=== PATIENT | male | born 2000 | race Caucasian/White ===

== ENCOUNTER 2024-09-27 08:32 | Emergency (ER) | payer SELFPAY ==
[2024-09-27 08:49] VITALS: BP 130/72; PULSE 76; RESP 16; TEMP 36.4; O2SAT 99
--- NOTE | 2024-09-27 09:10 | ED.GENADULT ---
HPI - General Adult General Chief complaint: Upper Respiratory Infection Stated complaint: Sick Feeling Time Seen by Provider: 09/27/24 08:59 Source: patient and RN notes reviewed Mode of arrival: ambulatory Limitations: no limitations History of Present Illness HPI narrative: Patient presents today with a 1 month history of intermittent nausea and vomiting, approximately every other day. Vomiting typically occurs in the morning and nausea resolves through the day. Patient denies abdominal pain or diarrhea. States he does occasionally have some burning esophagus or upper chest area. Related Data Allergies Allergy/AdvReac Type Severity Reaction Status Date / Time No Known Allergies Allergy Verified 09/27/24 09:13 Review of Systems Review of Systems: CONSTITUTIONAL: Denies body aches, fever, chills, or sweats. EYES: Denies visual changes, redness, or discharge. ENT: Denies rhinorrhea, congestion, sore throat, or otalgia. CARDIOVASCULAR: Denies chest pain, palpitations, or edema. RESPIRATORY: Denies cough or dyspnea. GASTROINTESTINAL: Denies abdominal pain, or diarrhea.+ nausea, vomiting GENITOURINARY: Denies dysuria or hematuria. SKIN: Denies rash, itching, or wounds. MUSCULOSKELETAL: Denies back pain, joint pain, or myalgia. NEUROLOGIC: Denies headache, numbness, tingling, or weakness. PSYCH: Denies depression or anxiety. REPLACED BY [facility] Family History Family History Other Carcinoma of colon Diabetes mellitus Family history of congestive heart failure Family history of malignant neoplasm Family history of malignant neoplasm of breast Social History Social History Smoking status: Never smoker Alcohol intake: never Comments At time of signature, I have reviewed and agree with nursing past medical, surgical, social and family history unless otherwise noted. Please see nursing chart for further information. There is no relevant family history pertinent to the presenting complaint Exam Narrative: GENERAL: Well-appearing, well-nourished, and in no acute distress. HEAD: Normocephalic, atraumatic. EYES: EOMI. No redness or drainage. Conjunctivae normal. ENT: Mucous membranes pink and moist. Nares clear. No rhinorrhea. Throat normal. Uvula midline. NECK: Normal AROM. Supple. No lymphadenopathy. CHEST: No respiratory distress. Clear to auscultation. HEART: Regular rate and rhythm. No murmur appreciated. ABDOMEN: Soft, nontender, nondistended, normal active bowel sounds. EXTREMITIES: Normal range of motion. No edema. SKIN: Warm, dry, no rash. Capillary refill normal. Normal skin turgor. NEURO: No focal deficits. Alert and oriented x3. Gait steady. PSYCH: Normal affect. No signs of depression or anxiety. Course Course Level of Care: Express Care Visit Vital Signs Vital signs: Vital Signs Temperature 97.5 F L 09/27/24 08:49 Pulse Rate 76 09/27/24 08:49 Respiratory Rate 16 09/27/24 08:49 Blood Pressure 130/72 09/27/24 08:49 Pulse Oximetry 99 09/27/24 08:49 Oxygen Delivery Room Air 09/27/24 08:49 Temperature 97.5 F L 09/27/24 08:49 Pulse Rate 76 09/27/24 08:49 Respiratory Rate 16 09/27/24 08:49 Blood Pressure 130/72 09/27/24 08:49 Pulse Oximetry 99 09/27/24 08:49 Oxygen Delivery Room Air 09/27/24 08:49 Reviewed Medical Decision Making MDM Narrative Medical decision making narrative: Patient's symptoms likely due to GERD. Will prescribe some Zofran to take when he wakes up with nausea. Also discussed other measures such as PPI. Patient will initiate care with a PCP as soon as he gets insurance from his new job. Anticipatory guidance given. Differential Diagnosis Differential Diagnosis: Gastroenteritis, gastric ulcer, GERD, esophagitis Vital Signs Vital Signs: Vital Signs Temperature 97.5 F L 09/27/24 08:49 Pulse Rate 76 09/27/24 08:49 Respiratory Rate 16 09/27/24 08:49 Blood Pressure 130/72 09/27/24 08:49 Pulse Oximetry 99 09/27/24 08:49 Oxygen Delivery Room Air 09/27/24 08:49 Temperature 97.5 F L 09/27/24 08:49 Pulse Rate 76 09/27/24 08:49 Respiratory Rate 16 09/27/24 08:49 Blood Pressure 130/72 09/27/24 08:49 Pulse Oximetry 99 09/27/24 08:49 Oxygen Delivery Room Air 09/27/24 08:49 Critical Care Time Critical Care Time Critical Care Time: No Discharge Plan Discharge Clinical Impression: Nausea & vomiting Qualifiers: Vomiting type: unspecified Qualified Code(s): R11.2 - Nausea with vomiting, unspecified Patient Disposition: Home, Self-Care Condition: Stable Instructions: Diet for Stomach Ulcers and Gastritis (ED), Gastroesophageal Reflux in Infants (ED) Additional Instructions: Please take the Zofran as prescribed. You should also consider taking a medications such as Pepcid or omeprazole to decrease the acid in your stomach. Sit up right for at least 2 hours before going to bed after eating. If symptoms worsen to include abdominal pain, fever greater than 100.3 back pain, blood in your vomit, please go to the ER immediately for further evaluation and treatment. Please initiate care with a new PCP as soon as possible. Your blood pressure was elevated above 120/80 today at Urgent Care. This puts you above the threshold for follow up. Please schedule a followup visit with your personal physician as soon as possible, for further evaluation and treatment. Even blood pressure exceeding 120/80 may indicate pre-hypertension. Patient Language: Welsh Prescriptions: New ondansetron HCl 4 mg tablet 4 mg PO Q4-8H PRN (Reason: nausea and vomiting) Qty: 20 0RF Follow-up/Referrals: UNKNOWN,DOCTOR [Primary Care Provider] - Stand Alone Forms: Work/School Release IP Time of Disposition: 09:18
== END 2024-09-27 09:20 | disposition home or self-care (01) ==
PROVIDERS: Emergency Provider Nurse Practitioner
DX: R11.2 Nausea with vomiting, unspecified (principal)
CPT/HCPCS: 99213; G0463